=== PATIENT | male | born 1930 | race Caucasian/White ===

== ENCOUNTER 2017-08-27 12:32 | Emergency (ER) | payer MEDICARE ==
[~2017-08-27] VITALS: Ht 182.9 cm; Wt 74.0 kg
[~2017-08-27 12:32] MED LIST: CETI10 PO; GEMF600T PO; LEVO.1 PO; Lutein; MULT-65 PO; ULTR37.57 PO
[2017-08-27 12:41] VITALS: BP 166/79; PULSE 60; RESP 16; TEMP 97.7; O2SAT 94
[2017-08-27] MEDS ORDERED: TRAM-388 PO (13:00)
[2017-08-27] MEDS ORDERED: LEVO100T5 PO (13:00)
[2017-08-27 13:10] VITALS: O2SAT 94
[2017-08-27 13:14] VITALS: BP_SYST 145; BP_SYST 157; BP_SYST 158; BP_DIAS 61; BP_DIAS 69; BP_DIAS 80; RESP 14; RESP 16
[2017-08-27] MEDS ORDERED: SODIUM CHLORIDE 0.9% FLUSH 10 ML FLUSH IVF PRN (13:15)
[2017-08-27] MEDS ORDERED: ONDANSETRON HCL 4 MG/2 ML VIAL IV PUSH ONE (13:15)
[2017-08-27 13:19] LABS: AUTOMATED NEUTROPHIL # 7.7 TH/MM3 (1.8-7.7); BASOPHIL % 0.3 % (0.0-2.0); EOSINOPHIL # 0.1 TH/MM3 (0-0.4); EOSINOPHIL % 0.7 % (0.0-4.0); HEMATOCRIT 40.7 % (39.0-51.0); HEMO FLAGS DIFF FINAL; LYMPH % 9.9 % (9.0-44.0); LYMPHOCYTE # 0.9 TH/MM3 (1.0-4.8); MEAN CELL VOLUME 89.4 FL (80.0-100.0); MEAN CORPUSCULAR HEMOGLOBIN 30.1 PG (27.0-34.0); MEAN CORPUSCULAR HGB CONC 33.7 % (32.0-36.0); MONO % 6.4 % (0.0-8.0); NEUT % 82.7 % (16.0-70.0); PLATELET COUNT 148 TH/MM3 (150-450); RED BLOOD COUNT 4.55 MIL/MM3 (4.50-5.90); RED CELL DISTRIBUTION WIDTH 12.4 % (11.6-17.2); WHITE BLOOD COUNT 9.3 TH/MM3 (4.0-11.0)
--- NOTE | 2017-08-27 13:21 | PD ---
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 EKG there showed prolonged QT interval, sinus bradycardia with PACs. Pt had multiple EKGs there and longest QTc was 487ms. Pt states he was sitting in [employer] and all of a sudden felt lightheaded and nauseous and almost passed out but woke up and did not hit his head. +Generalized weakness now. Denies previous similar episodes. Denies any fever, chest pain, sob, vomiting, abdominal pain, focal weakness or numbness. PFSH Past Medical History Arthritis: Yes (OSTEO) Cancer: Yes (H/O CANCER LYMPH NODES 7 YEARS AGO, HX COLON CA) Cardiovascular Problems: Yes (ARRHYTHMIA) High Cholesterol: Yes Chemotherapy: Yes Diabetes: No Diminished Hearing: No Diverticulitis: Yes Endocrine: No Glaucoma: No Genitourinary: Yes (HEMATURIA, BPH) Hepatitis: No Hiatal Hernia: No Hypertension: No Immune Disorder: No Medical other: Yes (VIT D DEFICANCY) Musculoskeletal: No Neurologic: No Psychiatric: No Reproductive: No Respiratory: No Thyroid Disease: Yes (HYPO) Tetanus Vaccination: > 5 Years Influenza Vaccination: Yes Past Surgical History Abdominal Surgery: Yes (HEMICOLECTOMY) Cardiac Surgery: No Ear Surgery: No Endocrine Surgery: No Eye Surgery: Yes (LEFT CATARACT EXTRACTION) Genitourinary Surgery: No Gynecologic Surgery: No Oral Surgery: No Pacemaker: No Thoracic Surgery: No Other Surgery: Yes (TURP) Social History Alcohol Use: No Tobacco Use: No Substance Use: No Allergies-Medications (Allergen,Severity, Reaction): Coded Allergies: tetanus toxoid, adsorbed (Unverified Allergy, Severe, ARM SWELLING, ) Uncoded Allergies: TETANUS-SWELLING OF ARMS,SURGICAL TAPE-REDDNESS (Allergy, Unknown, 08/01/03) Niaspan (Adverse Reaction, Severe, Marked flushing-USES NON FLUSHING NIASPAN, 01/02/10) Reported Meds & Prescriptions Reported Meds & Active Scripts Active Reported Tramadol-Acetaminophen 37.5-325 mg Tab 1 Tab PO Q4H PRN Levothyroxine (Levothyroxine Sodium) 100 Mcg Tab 100 Mcg PO DAILY Review of Systems Except as stated in HPI: all other systems reviewed are Neg Physical Exam Narrative GENERAL: 87yo M in mild distress. SKIN: Focused skin assessment warm/dry. HEAD: Atraumatic. Normocephalic. EYES: Pupils equal and round. No nystagmus. CARDIOVASCULAR: Regular rate and rhythm. No murmur appreciated. RESPIRATORY: No accessory muscle use. Clear to auscultation. Breath sounds equal bilaterally. GASTROINTESTINAL: Abdomen soft, non-tender, nondistended. MUSCULOSKELETAL: No obvious deformities. No clubbing. No cyanosis. No edema. NEUROLOGICAL: Awake and alert. No obvious cranial nerve deficits. Motor grossly within normal limits. Normal speech. PSYCHIATRIC: Appropriate mood and affect; insight and judgment normal. Data Data Last Documented VS Vital Signs Date Time Temp Pulse Resp B/P (MAP) Pulse Ox O2 Delivery O2 Flow Rate FiO2 08/27/17 17:00 08/27/17 16:35 Room Air 08/27/17 16:33 72 73 08/27/17 15:14 16 96 08/27/17 12:41 97.7 Orders Orders Complete Blood Count With Diff (08/27/17 13:07) Comprehensive Metabolic Panel (08/27/17 13:07) Magnesium (Mg) (08/27/17 13:07) Troponin I (08/27/17 13:07) Urinalysis - C+S If Indicated (08/27/17 13:07) Blood Glucose (08/27/17 13:07) Ecg Monitoring (08/27/17 13:07) Iv Access Insert/Monitor (08/27/17 13:07) Oximetry (08/27/17 13:07) Sodium Chloride 0.9% Flush (Ns Flush) (08/27/17 13:15) Orthostatic Vital Signs (08/27/17 13:07) Thyroid Stimulating Hormone (08/27/17 13:07) Ondansetron Inj (Zofran Inj) (08/27/17 13:15) Sodium Chlor 0.9% 1000 Ml Inj (Ns 1000 M (08/27/17 14:45) Electrocardiogram (08/27/17 12:55) Potassium Chloride (Kcl) (08/27/17 16:30) Labs Laboratory Tests Test 08/27/17 13:10 08/27/17 14:30 White Blood Count 9.3 TH/MM3 Red Blood Count 4.55 MIL/MM3 Hemoglobin 13.7 GM/DL Hematocrit 40.7 % Mean Corpuscular Volume 89.4 FL Mean Corpuscular Hemoglobin 30.1 PG Mean Corpuscular Hemoglobin Concent 33.7 % Red Cell Distribution Width 12.4 % Platelet Count 148 TH/MM3 Mean Platelet Volume 7.6 FL Neutrophils (%) (Auto) 82.7 % Lymphocytes (%) (Auto) 9.9 % Monocytes (%) (Auto) 6.4 % Eosinophils (%) (Auto) 0.7 % Basophils (%) (Auto) 0.3 % Neutrophils # (Auto) 7.7 TH/MM3 Lymphocytes # (Auto) 0.9 TH/MM3 Monocytes # (Auto) 0.6 TH/MM3 Eosinophils # (Auto) 0.1 TH/MM3 Basophils # (Auto) 0.0 TH/MM3 CBC Comment DIFF FINAL Differential Comment Blood Urea Nitrogen 20 MG/DL Creatinine 0.82 MG/DL Random Glucose 121 MG/DL Total Protein 7.4 GM/DL Albumin 3.8 GM/DL Calcium Level 8.8 MG/DL Magnesium Level 2.4 MG/DL Alkaline Phosphatase 81 U/L Aspartate Amino Transf (AST/SGOT) 20 U/L Alanine Aminotransferase (ALT/SGPT) 29 U/L Total Bilirubin 0.6 MG/DL Sodium Level 135 MEQ/L Potassium Level 3.6 MEQ/L Chloride Level 100 MEQ/L Carbon Dioxide Level 28.7 MEQ/L Anion Gap 6 MEQ/L Estimat Glomerular Filtration Rate 89 ML/MIN Troponin I LESS THAN 0.02 NG/ML Thyroid Stimulating Hormone 3rd Gen 1.340 uIU/ML Urine Color YELLOW Urine Turbidity CLEAR Urine pH 7.0 Urine Specific [place] 1.016 Urine Protein NEG mg/dL Urine Glucose (UA) NEG mg/dL Urine Ketones TRACE mg/dL Urine Occult Blood NEG Urine Nitrite NEG Urine Bilirubin NEG Urine Leukocyte Esterase NEG Urine RBC 0-3 /hpf Urine WBC 0-2 /hpf Urine Squamous Epithelial Cells 0-5 /hpf Urine Amorphous Sediment FEW Microscopic Urinalysis Comment CULT NOT INDICATED MDM Medical Decision Making Medical Screen Exam Complete: Yes Emergency Medical Condition: Yes Interpretation(s) EKG: NSR 66bpm. PACs. LAD. Prolong QTc 464ms. Differential Diagnosis Near syncope secondary to arrhythmia vs. Prolong QT secondary to electrolyte abnormalities Narrative Course 87yo M with episode of near syncope while sitting down at [facility]. Pt went to urgent care and was sent here after EKG showed prolonged QTc. Labs reviewed , no leukocytosis. Troponin negative. TSH normal. Glucose 121. HR did go up when standing but blood pressure did not drop. Discussed with Dr. Santoro for admission for observation but he wants to evaluate the patient himself first. Recommends NS IVF which was ordered. Dr. Santoro came to evaluate the patient in the ED and also discussed with professor computer science. Pt does not want to stay. Pt is to follow up with Dr. Cannon as an outpatient. Diagnosis Primary Impression: Near syncope Referrals: Kb Cannon MD call for appointment Near syncope with prolong QTc Patient Instructions: General Instructions Departure Forms: Tests/Procedures Additional Instructions: Please follow up with Dr. Cannon as an outpatient. Return to the ED if symptoms worsen. Med/Other Pt SpecificInfo: No Change to Meds Disposition: 01 DISCHARGE HOME Condition: Stable Lesly Portillo Aug 27, 2017 13:21
[2017-08-27 13:35] LABS: CHLORIDE 100 MEQ/L (98-107); POTASSIUM 3.6 MEQ/L (3.5-5.1); SODIUM (NA) 135 MEQ/L (136-145)
[2017-08-27 13:38] LABS: ANION GAP 6 MEQ/L (5-15); BICARBONATE 28.7 MEQ/L (21.0-32.0)
[2017-08-27 13:39] LABS: BLOOD UREA NITROGEN 20 MG/DL (7-18); MAGNESIUM 2.4 MG/DL (1.5-2.5)
[2017-08-27 13:41] LABS: ALT (GPT) 29 U/L (12-78); AST (GOT) 20 U/L (15-37)
[2017-08-27 13:42] LABS: GLOMERULAR FILTRATION RATE 89 ML/MIN (>89)
[2017-08-27 13:43] LABS: TOTAL BILIRUBIN ADULT 0.6 MG/DL (0.2-1.0)
[2017-08-27 13:44] LABS: ALKALINE PHOSPHATASE 81 U/L (45-117)
[2017-08-27 14:44] LABS: BLOOD, URINE NEG (NEG); GLUCOSE,URINE NEG (NEG); KETONE, URINE TRACE mg/dL (NEG); NITRITE,URINE NEG (NEG)
[2017-08-27] MEDS ORDERED: SODIUM CHLOR 0.9% 1000 ML INJ 1,000 ML IV ONE (14:45)
[2017-08-27 15:14] VITALS: BP 151/75; PULSE 63; RESP 16; O2SAT 96
[2017-08-27 15:21] LABS: URINE COLOR YELLOW (YELLW/STRAW); WBC, URINE 0-2 /hpf (0-5)
[2017-08-27 15:22] LABS: COMMENT (UR) CULT NOT INDICATED; CULTURE IF INDICATED CULT NOT INDICATED; RBC, URINE 0-3 /hpf (0-3); SQUAMOUS EPITHELIAL CELL URINE 0-5 /hpf (0-5)
[2017-08-27] MEDS ORDERED: POTASSIUM CHLORIDE 10 MEQ CONTROLLED RELEASE TAB PO ONE (16:30)
[2017-08-27 16:33] VITALS: BP_SYST 149; BP_SYST 152; BP_DIAS 78; BP_DIAS 83
--- NOTE | 2017-08-27 16:45 | HHI.PR ---
Subjective Remarks Called by Dr. Portillo regarding the patient's had near syncopal episode earlier this morning around [address] [facility]. He is with his friend here who is actually at [facility] with them. They both report that they have been drinking coffee and at the [facility] had no air conditioner so was somewhat hot inside. Patient was done with coughing but is cup fell onto the floor. Patient bent over like he was going to get back up and became lightheaded. His friend went ahead and continuous pickling line pickler upon floor form. The friend and patient then went outside to get some fresh air were was a bit cooler. Patient continued to have some lightheadedness. He was seen at [facility] for the persistent dizziness and lightheadedness. It is noted the patient has significant macular degeneration and depends on friends to drive him. Patient denied any chest pain or shortness of breath. Patient was sent from the [facility] to the ER due to abnormal EKG which showed some sinus bradycardia with a rate around 60 and QT prolongation with a QTC corrected interval of 469 ms. He also had previous EKG done at 12:29:22 which demonstrated some nonspecific ST changes and a prolonged QTC of 487. His evaluation in the ER noted for EKG with sinus rhythm with PVC and what appeared to be borderline left axis deviation with QT prolongation of 464 ms QTc. He was noted to be somewhat orthostatic regarding blood pressure and his potassium was borderline low at 3.6. Otherwise workup unremarkable. Patient denies chest pain or shortness of breath. Denies any palpitations. She knows longer feels dizzy since he is receiving IV fluids. He is desirous of discharge home and does not want to stay in the hospital overnight. I have discussed this with him and his clinical nursing professor and both understand to get back to the hospital immediately if he develops any symptoms. I discussed EKG findings and brief history with Dr. law in cardiology [employer] [facility] consultant. He advised outpatient workup would be appropriate based on description. We'll have the patient see cardiology in 1-2 weeks and follow his primary care physician next week. I've given him 1 dose of potassium prior to discharge. Repeat orthostatic vitals are negative for significant orthostatic changes. Past medical history: notable for colon cancer about 16 years ago Osteoarthritis particularly of the knees Macular degeneration Hypothyroidism Osteopenia Vitamin D deficiency Past surgical history Partial colectomy in 2000 Family history Mother in her 80s of possible cancer Father as a "young man". Occasions of tuberculosis Social history No tobacco alcohol or illicit drugs Lives alone Has not driven in several years secondary to macular degeneration. 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 but originally from [place] Medications Levothyroxine 100 g a day Tramadol/acetaminophen 37.5/325 one every 6 hours as needed for pain Allergies Tetanus toxoid Objective Vitals Vital Signs Date Time Temp Pulse Resp B/P (MAP) Pulse Ox O2 Delivery O2 Flow Rate FiO2 08/27/17 15:14 63 16 151/75 (100) 96 Room Air 08/27/17 13:14 67 14 145/61 (89) 69 14 158/69 (98) 77 16 157/80 (105) 08/27/17 13:10 94 Room Air 08/27/17 12:52 68 94 Room Air 08/27/17 12:41 97.7 60 16 166/79 (108) 94 08/27/17 08/27/17 08/28/17 15:00 23:00 07:00 Intake Total 1000 ml Output Total 500 ml Balance -500 ml 1000 ml Intake IV Total 1000 ml Output Urine Total 500 ml GENERAL: No acute distress, alert and oriented, cooperative with exam. SKIN: Warm and dry. Scar along right neck from prior surgery.abdominal scar from prior surgery. HEAD: Normocephalic. EYES: No scleral icterus. Extra motions intact. Slight conjunctival injection on the left. NECK: Supple, trachea midline. No JVD or lymphadenopathy. No bruit. CARDIOVASCULAR: Regular rate and rhythm without murmurs, gallops, or rubs. RESPIRATORY: Breath sounds equal bilaterally. No accessory muscle use. GASTROINTESTINAL: Abdomen soft, non-tender, nondistended. Bowel sounds normal. MUSCULOSKELETAL: No cyanosis, or edema. Moves all extremities well. Osteoarthritic changes bilateral knees. BACK: No CVA tenderness. Result Diagram: 08/27/17 1310 08/27/17 1310 Urinary Catheter: No Vascular Central Line Catheter: No A/P Problem List: (1) Near syncope ICD Codes: R55 - Syncope and collapse Status: Acute Plan: Likely due to some mild dehydration and vagal hyperstimulation. He was notedly orthostatic positive initially but repeat after IV fluids is negative for significant orthostatic changes. Will continue hydration. Change position slowly. We'll have the patient see his primary care physician within the next week and quantitative developer within the next 1-2 weeks. (2) QT prolongation ICD Codes: R94.31 - Abnormal electrocardiogram [ECG] [EKG] Plan: Discussed with Dr. law. It is not thought that this is the etiology of his near syncopal episode earlier today. We'll have him see cardiology within the next 1-2 weeks. He prefers to be seen in [place] as this is closer to his home and he depends on others for transportation. I have given them contact information for [facility] cardiology. Have also instructed patient and his clinical nursing professor on reasons to return to the ER for acute evaluation. (3) Hypothyroidism Status: Chronic Plan: Continue medication. TSH normal within last few months. Permanent Comment: Dx's 11/29. Dr Angel follows Thyroid Last Edited By: Roxi Ace on Nov 09, 2012 14:13 Discharge Planning Discharge home with outpatient follow-up as noted above. Piero Santoro MD PhD Aug 27, 2017 16:45
--- NOTE | 2017-08-28 13:06 | EKG ---
Date Performed: 08/27/2017 Time Performed: 12:55:02 PTAGE: 87 years EKG: Sinus rhythm WITH FREQUENT SUPRAVENTRICULAR PREMATURE COMPLEXES BORDERLINE LEFT AXIS DEVIATION MODERATE ST DEPRES CHRISTOPHER PROLONGED QT INTERVAL ABNORMAL ECG NO PREVIOUS TRACING DOCTOR: Lew Gamez Interpretating Date/Time 08/28/2017 13:03:20
== END 2017-08-27 17:01 | disposition home or self-care (01) ==
LOC: PHED 12:32
DX: R55 Syncope and collapse (principal); E03.9 Hypothyroidism, unspecified; E78.00 Pure hypercholesterolemia, unspecified; N40.0 Benign prostatic hyperplasia without lower urinary tract symptoms; Z85.038 Personal history of other malignant neoplasm of large intestine
CPT/HCPCS: 80053; 81001; 83735; 84443; 84484; 85025; 93005; 96361; 96374; 99284; J2405; J7030